=== PATIENT | female | born 1980 | race Caucasian/White ===

== ENCOUNTER 2016-05-03 08:38 | Outpatient (CLI) ==
[2014-06-14 10:59] VITALS: BMI 37.4
[2016-05-03 09:13] LABS: CHOL/HDL RATIO 4.1 (4.5-5.5)
[2016-05-03 09:14] LABS: SERUM PREGNANCY INTERNAL QC INTERNAL QC VALID
== END 2016-05-03 08:39 | disposition home or self-care (01) ==
LOC: LAB 08:38
PROVIDERS: ATTEND Advanced Practice Midwife
DX: Z00.00 Encounter for general adult medical examination without abnormal findings (principal); N91.2 Amenorrhea, unspecified
CPT/HCPCS: 36415; 80061; 84703

== ENCOUNTER 2016-05-04 15:55 | Outpatient (CLI) ==
[2014-06-14 10:59] VITALS: BMI 37.4
== END 2016-05-04 15:56 | disposition home or self-care (01) ==
LOC: CAR 15:55
PROVIDERS: ATTEND Physician Assistant
DX: R06.83 Snoring (principal); Z00.00 Encounter for general adult medical examination without abnormal findings
CPT/HCPCS: 95810

== ENCOUNTER 2016-06-02 15:34 | Outpatient (CLI) ==
[2014-06-14 10:59] VITALS: BMI 37.4
== END 2016-06-02 15:35 | disposition home or self-care (01) ==
LOC: CAR 15:34
PROVIDERS: ATTEND Physician Assistant
DX: G47.33 Obstructive sleep apnea (adult) (pediatric) (principal)
CPT/HCPCS: 95811

== ENCOUNTER 2016-07-26 13:06 | Emergency (ER) ==
[2016-07-26 13:10] VITALS: BP 138/86; TEMP 97.7; BMI 39.1
[2016-07-26 13:40] LABS: BASOPHILS % (AUTO) 0.5 % (0.0-3.0); EOSINOPHILS # (AUTO) 0.2 K/ul (0.0-0.7); HEMATOCRIT 36.1 % (37.0-47.0); HEMOGLOBIN 12.5 g/dl (12.0-16.0); IMMATURE GRANULOCYTE % (AUTO) 0.1 % (0.0-5.0); LYMPHOCYTES # (AUTO) 2.5 K/uL (0.60-3.4); LYMPHOCYTES % (AUTO) 32.4 (10.0-50.0); MEAN CORPUSCULAR HEMOGLOBIN 29.6 pg (27.0-31.0); MEAN CORPUSCULAR HGB CONC 34.6 (31.8-35.4); MEAN CORPUSCULAR VOLUME 85.5 fl (81.0-99.0); MONOCYTES # (AUTO) 0.5 K/uL (0.4-2.0); MONOCYTES % (AUTO) 6.1 (0-10); NEUTROPHILS # (AUTO) 4.6 K/ul (2.0-6.9); NEUTROPHILS % (AUTO) 58.9; PLATELET COUNT 219 10^3/uL (140-440); RED BLOOD COUNT 4.22 10^6/ul (4.20-5.40); WHITE BLOOD COUNT 7.82 K/ul (4.6-10.2)
[2016-07-26 13:45] LABS: URINE PREGNANCY INTERNAL QC INTERNAL QC VALID
[2016-07-26 14:01] LABS: ALANINE AMINOTRANSFERASE 24 U/L (12-78); ALBUMIN 3.9 g/dL (3.4-5.0); ALBUMIN/GLOBULIN RATIO 1.34; ALKALINE PHOSPHATASE 73 U/L (42-98); ANION GAP 10.6; ASPARTATE AMINO TRANSFERASE 14 U/L (15-37); BILIRUBIN,TOTAL 0.46 mg/dL (0.00-1.20); BLOOD UREA NITROGEN 10 mg/dL (7-18); BUN/CREATININE RATIO 12.34; CALCIUM 9.2 mg/dL (8.2-10.2); CARBON DIOXIDE 26 mmol/L (21-32); CHLORIDE 106 mmol/L (98-107); CREATINE KINASE 91 U/L; CREATININE 0.81 mg/dL (0.60-1.30); GLUCOSE 96 mg/dL (70-110); POTASSIUM 3.6 mmol/L (3.5-5.10); SODIUM 139 mmol/L (136-145); TOTAL PROTEIN 6.8 g/dL (6.4-8.2)
--- NOTE | 2016-07-26 14:29 | DI ---
EXAM: Chest two views HISTORY: Pain COMPARISON: None TECHNIQUE: Two views of the chest were performed FINDINGS: The lungs are clear. There is no pleural effusion or pneumothorax. The heart is normal in size. The mediastinal contour is normal. There are no acute abnormalities of the bones. IMPRESSION: No acute cardiopulmonary process.
--- NOTE | 2016-07-26 14:39 | CT ---
EXAM: CT head without contrast HISTORY: Woke up with headache and dizziness COMPARISON: CT head 06/14/2014 TECHNIQUE: Serial axial images of the brain were obtained from the skull base to the vertex without IV contrast. FINDINGS: The ventricles, cisterns and sulci are normal. The damon-white matter junction is maintai ara. No midline shift or mass is identified. There is no abnormal intra or extra-axial fluid colle ction. The paranasal sinuses and mastoid air cells are clear. The osseous calvarium is intact. IMPRESSION: No acute intracranial abnormality or hemorrhage. If further evaluation is clinically i ndicated, MRI may be obtained as clinically indicated.
--- NOTE | 2016-07-26 15:21 | ED.PDOC ---
General ED Provider: Dr. LILO DENNY Chief Complaint: Chest Pain Stated Complaint: chest pain Time Seen by Physician: 13:10 Mode of Arrival: Walk-In Information Source: Patient Exam Limitations: No limitations Primary Care Provider: MARIS RUEDA Nursing and Triage Documentation Reviewed and Agree: Yes Cardiovascular Complaint Exam - Chest Pain Complaint/Exam Onset: Gradual Duration: 1 day Symptoms Are: Still present Initial Severity: Moderate Current Severity: Moderate Location: Reports: Midsternal Pain Radiates: Reports: None Character: Reports: Dull Aggravating: Reports: None Alleviating: Reports: None Associated Signs and Symptoms: Denies: Diaphoresis, Nausea, Vomiting, Fever, Palpitations, Cough, Hemoptysis, Back pain, Abdominal pain, Dizziness, Short of air, Calf pain, Calf swelling History of Healthcare-Acquired Pneumonia: Reports: No AMI/ACS Risk Factors: Reports: None TAD Risk Factors: Reports: None Pulmonary Embolism Risk Factors: Reports: None Prior Care for this Complaint: No Recent Stress Test: No Recent Echo/LV Function: No JVD Present: No Subcutaneous Emphysema Present: No Diminshed Breath Sounds: No Reproducible Chest Wall Pain: No Bilateral Pulses Present: No Unequal Pulses Noted: No If Risk Factors for AMI/ACS Consider: EKG, Cardiac Enzymes Review of Systems - Review Of Systems Constitutional: Reports: No symptoms Eyes: Reports: No symptoms Ears, Nose, Mouth, Throat: Reports: No symptoms Respiratory: Reports: No symptoms Cardiac: Reports: Chest pain GI: Reports: No symptoms : Reports: No symptoms Musculoskeletal: Reports: No symptoms Skin: Reports: No symptoms Neurological: Reports: No symptoms Endocrine: Reports: No symptoms Hematologic/Lymphatic: Reports: No symptoms All Other Systems: Reviewed and Negative Past Medical History - Past Medical History Previously Healthy: Yes Endocrine: Reports: None Cardiovascular: Reports: None Respiratory: Reports: None Hematological: Reports: None Gastrointestinal: Reports: None Genitourinary: Reports: None Neuro/Psych: Reports: None Musculoskeletal: Reports: None Cancer: Reports: None Last Menstrual Period: depo shots no period for 1 year - Surgical History General Surgical History: Reports: Unknown - Family History Family History: Reports: Unknown - Social History Smoking Status: Never smoker Hx Substance Use: No Alcohol Screening: None Physical Exam - Physical Exam Appearance: Well-appearing, No pain distress, Well-nourished Eyes: LAURYN, EOMI, Conjunctiva clear ENT: Ears normal, Nose normal, Oropharynx normal Respiratory: Airway patent, Breath sounds clear, Breath sounds equal, Respirations nonlabored Cardiovascular: RRR, Pulses normal, No rub, No murmur GI/: Soft, Nontender, No masses, Bowel sounds normal, No Organomegaly Musculoskeletal: Normal strength, ROM intact, No edema, No calf tenderness Skin: Warm, Dry, Normal color Neurological: Sensation intact, Motor intact, Reflexes intact, Cranial nerves intact, Alert, Oriented Psychiatric: Affect appropriate, Mood appropriate Interpretation - Public Health Representative Rate: Normal Rhythm: Sinus Ectopy: None - EKG Interpretation Rate: Normal Rhythm: Sinus Ectopy: None Fielding: NL ST Segment: Normal Critical Care Note - Critical Care Note Total Time (mins): 0 Course - Course Hematology/Chemistry: 07/26/16 13:30 07/26/16 13:30 Orders, Labs, Meds: Lab Review 07/26/16 07/26/16 13:30 13:35 WBC 7.82 RBC 4.22 Hgb 12.5 Hct 36.1 L MCV 85.5 MCH 29.6 MCHC 34.6 RDW Coeff of Sarah 12.4 Plt Count 219 Immature Gran % (Auto) 0.1 Neut % (Auto) 58.9 Lymph % (Auto) 32.4 [place] % (Auto) 6.1 Eos % (Auto) 2.0 Baso % (Auto) 0.5 Immature Gran # (Auto) 0.0 Neut # 4.6 Lymph # 2.5 [place] # 0.5 Eos # 0.2 Baso # 0.0 Sodium 139 Potassium 3.6 Chloride 106 Carbon Dioxide 26 Anion Gap 10.6 BUN 10 Creatinine 0.81 Estimated GFR (MDRD) 80.00 BUN/Creatinine Ratio 12.34 Glucose 96 Calcium 9.2 Total Bilirubin 0.46 AST 14 L ALT 24 Alkaline Phosphatase 73 Total Creatine Kinase 91 Troponin I < 0.0100 Total Protein 6.8 Albumin 3.9 Globulin 2.9 Albumin/Globulin Ratio 1.34 Urine Test Negative Orders Category Date Time Status EKG-(ED ONLY) Stat CARDIO 07/26/16 13:29 Completed CBC W/ AUTO DIFF Stat LAB 07/26/16 13:30 Completed COMPREHENSIVE METABOLIC PANEL Stat LAB 07/26/16 13:30 Completed CREATINE KINASE Stat LAB 07/26/16 13:30 Completed TROPONIN I Stat LAB 07/26/16 13:30 Completed URINE Stat LAB 07/26/16 13:35 Completed CHEST, 2 VIEWS PA & LAT Stat RADS 07/26/16 13:[address] HEAD W/O CONTRAST Stat RADS 07/26/16 13:29 Completed Vital Signs: Temp Pulse Resp BP Pulse Ox 07/26/16 13:07 97.7 F 84 20 138/86 98 BELEN Risk Score BELEN Risk Score: Risk Score Odds of by 30D 0 0.1 (0.1-0.2) 1 0.3 (0.2-0.3) 2 0.4 (0.3-0.5) 3 0.7 (0.6-0.9) 4 1.2 (1.0-1.5) 5 2.2 (1.9-2.6) 6 3.0 (2.5-3.6) 7 4.8 (3.8-6.1) Departure - Departure Time of Disposition: 15:21 Disposition: HOME SELF-CARE Discharge Problem: Chest pain Instructions: Angina (ED), Chest Pain (ED), Noncardiac Chest Pain (ED) Condition: Good Pt referred to PMD for follow-up: No Additional Instructions: Please call your Family Physician as soon as possible to schedule a follow-up appointment. Allergies/Adverse Reactions: Allergies onions Adverse Reaction (Mild, Uncoded 07/26/16 13:10) sore mouth Home Medications: Ambulatory Orders Medroxyprogesterone Acetate [Depo-Provera] 150 mg IM DIRECTED 04/28/15
[2016-07-26] MEDS ORDERED: ELIQUIS PO SCH (16:00)
[2016-07-26] MEDS ORDERED: SODIUM CHLORIDE 1,000 ML IV SCH (16:00)
== END 2016-07-26 15:30 | disposition home or self-care (01) ==
LOC: ED 13:06
DX: R07.9 Chest pain, unspecified (principal)
CPT/HCPCS: 36415; 80053; 81025; 82550; 84484; 85025; 93005; 93010; 99283

== ENCOUNTER 2016-09-27 20:21 | Emergency (ER) ==
[2016-09-27 20:27] VITALS: BP 137/84; TEMP 99.2; BMI 39.9
[2016-09-27] MEDS ORDERED: NORCO 7.5-325 PO STA (21:05)
--- NOTE | 2016-09-27 21:09 | ED.PDOC ---
General ED Provider: Dr. TARA SCHAEFER-ER Chief Complaint: Fall Stated Complaint: i fell at home--i hufrt my left ankle. left wrist and right knee--no loc or head or neck injury Time Seen by Physician: 21:07 Mode of Arrival: Walk-In Information Source: Patient Exam Limitations: No limitations Primary Care Provider: MARIS RUEDA Nursing and Triage Documentation Reviewed and Agree: Yes Musculoskeletal Complaint Exam - Lower Extremity Complaint/Exam Location of Pain: Reports: Left, Ankle Mechanism of Injury: Reports: Trauma Onset/Duration: one hour Symptoms Are: Still present Onset of Pain: Reports: Immediate Initial Severity: Mild Current Severity: Mild Location: Reports: Discrete Character: Reports: Dull, Aching Aggravating: Reports: Movement, Weight bearing, Prolonged standing Able to Bear Weight: Yes Associated Signs and Symptoms: Reports: Swelling. Denies: Redness, Bruising, Fever, Weakness, Numbness, Tingling DVT Risk Factors: Reports: None Septic Arthritis Risk Factors: Reports: None Related Surgical History: Reports: None Lower Extremity Findings: Present: Swelling, Ecchymosis, Abnormal contour, Tenderness, Limited range of motion NV Bundle Intact Distal to Injury: Yes Compartment Syndrome Risk Factors: Present: Pain. Absent: Paralysis, Pallor, Pulselessness, Paresthesias Suki's Sign Present: No Differential Diagnoses: Fracture, Strain, Sprain Review of Systems - Review Of Systems Constitutional: Reports: No symptoms Eyes: Reports: No symptoms Ears, Nose, Mouth, Throat: Reports: No symptoms Respiratory: Reports: No symptoms Cardiac: Reports: No symptoms GI: Reports: No symptoms : Reports: No symptoms Musculoskeletal: Reports: Joint pain, Joint swelling, Muscle pain Skin: Reports: No symptoms Neurological: Reports: No symptoms Endocrine: Reports: No symptoms Hematologic/Lymphatic: Reports: No symptoms All Other Systems: Reviewed and Negative Past Medical History - Past Medical History Previously Healthy: Yes Endocrine: Reports: None Cardiovascular: Reports: None Respiratory: Reports: None Hematological: Reports: None Gastrointestinal: Reports: None Genitourinary: Reports: None Neuro/Psych: Reports: None Musculoskeletal: Reports: None Cancer: Reports: None Last Menstrual Period: DEPO PROVERA - Surgical History General Surgical History: Reports: Unknown - Family History Family History: Reports: Unknown - Social History Smoking Status: Never smoker Hx Substance Use: No Alcohol Screening: None Lives: With family - Immunizations Tetanus Shot up to Date: No Physical Exam - Physical Exam Appearance: Well-appearing, No pain distress, Well-nourished Pain Distress: Mild Eyes: LAURYN, EOMI, Conjunctiva clear ENT: Ears normal, Nose normal, Oropharynx normal Neck: Supple Respiratory: Airway patent, Breath sounds clear, Breath sounds equal, Respirations nonlabored Cardiovascular: RRR, Pulses normal, No rub, No murmur GI/: Soft, Nontender, No masses, Bowel sounds normal, No Organomegaly Musculoskeletal: Limited ROM Skin: Warm, Dry, Normal color Neurological: Sensation intact, Motor intact, Reflexes intact, Cranial nerves intact, Alert, Oriented Psychiatric: Affect appropriate, Mood appropriate Interpretation - Radiology Interpretation Radiology Interpretation By: ED Physician Radiology Results: Negative Critical Care Note - Critical Care Note Total Time (mins): 0 Course - Course Orders, Labs, Meds: Orders Category Date Time Status CRUTCHES [ED CRUTCHES] .ONCE EMERGENCY 09/27/16 21:05 Active ED SUMMER WRAP .ONCE EMERGENCY 09/27/16 21:05 Active ED SPLINT APPLICATION .ONCE EMERGENCY 09/27/16 21:05 Active Wound care [ED WOUND CARE] .ONCE EMERGENCY 09/27/16 21:06 Active Hydrocodone Bit/Acetaminophen [[place] 7.5-325] MEDS 09/27/16 21:05 Stat 1 tab PO ONCE STA ANKLE, LEFT MIN 3 VIEWS Stat RADS 09/27/16 20:31 Taken KNEE, RIGHT 4 VIEWS Stat RADS 09/27/16 20:31 Taken WRIST, LEFT 3 VIEWS Stat RADS 09/27/16 20:31 Taken Vital Signs: Temp Pulse Resp BP Pulse Ox 09/27/16 20:21 99.2 F 93 H 18 137/84 98 Departure - Departure Time of Disposition: 21:08 Disposition: HOME SELF-CARE Discharge Problem: Ankle sprain Qualifiers: Encounter type: initial encounter Involved ligament of ankle: other ligament Laterality: left Qualifier Code: (S93.492A) Sprain of other ligament of left ankle, initial encounter Instructions: Ankle Sprain (ED), Ankle Stirrup Splint (ED) Condition: Good Pt referred to PMD for follow-up: Yes Additional Instructions: stay in splint--norco 5mg q 4hrs prn pain #15--ice tonight--use crutches--f/u with pcp this week+ Allergies/Adverse Reactions: Allergies onions Adverse Reaction (Mild, Uncoded 09/27/16 20:27) sore mouth Home Medications: Ambulatory Orders Medroxyprogesterone Acetate [Depo-Provera] 150 mg IM DIRECTED 04/28/15 Escitalopram Oxalate [Lexapro] 10 mg PO DAILY 09/27/16 Disposition Discussed With: Patient
--- NOTE | 2016-09-27 21:43 | DI ---
EXAM: Radiographs, left wrist HISTORY: Initial presentation for left wrist trauma. COMPARISON: None available. TECHNIQUE: Three views. FINDINGS: Bone mineralization is normal. There is no fracture or dislocation. The joint spaces ar e maintained. No focal soft tissue abnormality is seen. IMPRESSION: No fracture or dislocation.
--- NOTE | 2016-09-27 21:44 | DI ---
EXAM: Radiographs, left ankle HISTORY: Initial presentation for left ankle trauma. COMPARISON: None available. TECHNIQUE: Three views. FINDINGS: Bone mineralization is normal. There is no fracture or dislocation. The joint spaces ar e maintained. No focal soft tissue abnormality is seen. IMPRESSION: No fracture or dislocation.
--- NOTE | 2016-09-27 21:45 | DI ---
EXAM: Radiographs, right knee HISTORY: Initial presentation for right knee trauma. COMPARISON: None available. TECHNIQUE: Four views. FINDINGS: Bone mineralization is normal. There is no fracture or dislocation. The joint spaces ar e maintained. No focal soft tissue abnormality is seen. IMPRESSION: No fracture or dislocation.
== END 2016-09-27 21:15 | disposition home or self-care (01) ==
LOC: ED 20:21
DX: S93.492A Sprain of other ligament of left ankle, initial encounter (principal); S69.92XA Unspecified injury of left wrist, hand and finger(s), initial encounter; S89.91XA Unspecified injury of right lower leg, initial encounter; W19.XXXA Unspecified fall, initial encounter
CPT/HCPCS: 99283

== ENCOUNTER 2017-01-05 07:52 | Outpatient (CLI) ==
[2017-01-05 08:23] LABS: CREATININE 0.79 mg/dL (0.60-1.30)
--- NOTE | 2017-01-05 09:07 | CT ---
EXAM: CT Sinuses with and without contrast. HISTORY: Sinus pressure. COMPARISON: None available. TECHNIQUE: Multiple axial images of the sinuses were obtained prior to and following intravenous adm inistration of 75 mL of Omnipaque 350. Images were reformatted in the sagittal and coronal plane. FINDINGS: Maxillary sinuses: Clear. Ostiomeatal units are patent. Ethmoid sinuses: Clear. Sphenoid sinuses: Clear. Frontal sinuses: Clear. Nasal cavity: Unremarkable. Mastoid air cells are clear. No fracture identified. No localized soft tissue abnormality identifie d. Globes and intraorbital structures are intact. No acute abnormality within the visualized brain. Possible left frontal developmental venous anomaly on axial images 42-44. IMPRESSION: No evidence for sinusitis.
== END 2017-01-05 07:53 | disposition home or self-care (01) ==
LOC: RAD 07:52
PROVIDERS: ATTEND Physician Assistant
DX: J32.9 Chronic sinusitis, unspecified (principal)
CPT/HCPCS: 36415; 82565

== ENCOUNTER 2017-06-20 12:14 | Outpatient (CLI) ==
--- NOTE | 2017-06-20 13:33 | DI ---
EXAM: Radiographs, right wrist HISTORY: Right wrist ganglion cyst. COMPARISON: None available. TECHNIQUE: Three views. FINDINGS: Bone mineralization is normal. There is no fracture or dislocation. The joint spaces are maintained. Focal ovoid opacity in the superficial soft tissues of the dorsal right wrist noted in the area of concern. IMPRESSION: Ovoid soft tissue nodule in the area of concern of the dorsal wrist could represent a ganglion cyst. Consider ultrasound or MRI if further evaluation is needed.
== END 2017-06-20 12:15 | disposition home or self-care (01) ==
LOC: RAD 12:14
PROVIDERS: ATTEND Physician Assistant
DX: M67.431 Ganglion, right wrist (principal)

== ENCOUNTER 2017-10-07 12:17 | Outpatient (CLI) | END 2017-10-07 12:18 | disposition home or self-care (01) | LOC: LAB 12:17 | PROVIDERS: ATTEND Physician Assistant | DX: Z02.0 Encounter for examination for admission to educational institution (principal) | CPT/HCPCS: 36415; 86317; 86787 ==

== ENCOUNTER 2018-07-11 08:03 | Emergency (ER) ==
[2018-07-11 08:18] VITALS: BP 135/92; TEMP 97.7; BMI 42.9
--- NOTE | 2018-07-11 08:30 | ED.PDOC ---
General ED Provider: Dr. TARA VICKERS MD Chief Complaint: Neck Pain Non-Injury Stated Complaint: upper back pain x 4 months, worse over past 4 days Time Seen by Physician: 08:16 Mode of Arrival: Walk-In Information Source: Patient Exam Limitations: No limitations Primary Care Provider: FRANCISCO JAVIER CROSS Nursing and Triage Documentation Reviewed and Agree: Yes Does patient meet sepsis criteria?: No If yes, has appropriate treatment been initiated?: Yes System Inflammatory Response Syndrome: Not Applicable Sepsis Protocol: For patient's 13 years and over: Temp is 96.8 and below OR 101 and greater Pulse >90 BPM Resp >20/minute Acutely Altered Mental Status Are patient's symptoms suggestive of a new infection, such as: -Pneumonia -Skin, Soft Tissue -Endocarditis -UTI -Bone, Joint Infection -Implantable Device -Acute Abdominal Infection -Wound Infection -Meningitis -Blood Stream Catheter Infection -Unknown Review of Systems - Review Of Systems Constitutional: Reports: No symptoms Eyes: Reports: No symptoms Ears, Nose, Mouth, Throat: Reports: No symptoms Respiratory: Reports: No symptoms Cardiac: Reports: No symptoms GI: Reports: No symptoms : Reports: No symptoms Musculoskeletal: Reports: No symptoms Skin: Reports: No symptoms Neurological: Reports: No symptoms Endocrine: Reports: No symptoms Hematologic/Lymphatic: Reports: No symptoms All Other Systems: Reviewed and Negative Past Medical History - Past Medical History Previously Healthy: Yes Endocrine: Reports: None Cardiovascular: Reports: None Respiratory: Reports: None Hematological: Reports: None Gastrointestinal: Reports: None Genitourinary: Reports: None Neuro/Psych: Reports: None Musculoskeletal: Reports: None Cancer: Reports: None Last Menstrual Period: 4 YEARS - Surgical History General Surgical History: Reports: Unknown - Family History Family History: Reports: Unknown - Social History Smoking Status: Never smoker Hx Substance Use: No Alcohol Screening: None Physical Exam - Physical Exam Appearance: Well-appearing, Obese Ill-appearing: None Pain Distress: Mild Eyes: LAURYN, EOMI, Conjunctiva clear ENT: Ears normal, Nose normal, Oropharynx normal Neck: Supple Respiratory: Airway patent, Breath sounds clear, Breath sounds equal, Respirations nonlabored Cardiovascular: RRR, Pulses normal, No rub, No murmur GI/: Soft, Nontender, No masses, Bowel sounds normal, No Organomegaly Musculoskeletal: Normal strength (TTP in T4-6 area midline to right) Critical Care Note - Critical Care Note Total Time (mins): 0 Course - Course Orders, Labs, Meds: Orders Category Date Time Status Ketorolac Tromethamine [Toradol] MEDS 07/11/18 09:35 Discontinued 60 mg IM ONCE STA THORACIC SPINE, 3 VIEWS Stat RADS 07/11/18 08:29 Completed Medications Discontinued Medications Generic Name Dose Route Start Last Admin Trade Name Prasanth PRN Reason Stop Dose Admin Ketorolac Tromethamine 60 mg 07/11/18 09:35 07/11/18 09:54 Toradol IM 07/11/18 09:36 60 mg ONCE STA Administration Vital Signs: Temp Pulse Resp BP Pulse Ox 07/11/18 08:05 97.7 F 87 20 135/92 H 98 Departure - Departure Time of Disposition: 10:38 Disposition: HOME SELF-CARE Discharge Problem: Thoracic back pain Qualifiers: Chronicity: chronic Back pain laterality: midline Qualified Code(s): M54.6 - Pain in thoracic spine; G89.29 - Other chronic pain Instructions: Back Pain (ED) Condition: Good Pt referred to PMD for follow-up: Yes IPMP verified?: No Prescriptions: Cyclobenzaprine HCl [Flexeril] 10 mg PO DAILY 10 Days #10 tablet NS Prednisone 20 mg PO DAILYWM 5 Days #5 tablet NS Allergies/Adverse Reactions: Allergies onions Adverse Reaction (Mild, Uncoded 07/11/18 08:15) sore mouth Home Medications: Ambulatory Orders Medroxyprogesterone Acetate [Depo-Provera] 150 mg IM DIRECTED 04/28/15 Cyclobenzaprine HCl [Flexeril] 10 mg PO DAILY 10 Days #10 tablet NS 07/11/18 Prednisone 20 mg PO DAILYWM 5 Days #5 tablet NS 07/11/18
--- NOTE | 2018-07-11 09:33 | DI ---
Exam: Three views thoracic spine. Comparison: CT abdomen pelvis performed 12/31/2013. Reason for exam: Upper thoracic pain x 4 months FINDINGS: Image interpretation is limited by summation artifact in the superior portion of the thora cic spine. Otherwise no acute fracture or listhesis is seen. There is a normal appearing thoracic k yphotic curve with mild degenerative disease. Impression: No obvious fracture or listhesis in the imaged portions of the thoracic spine. 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 The superiormost portion of the thoracic spine is poorly evaluated secondary to summation.
[2018-07-11] MEDS ORDERED: TORADOL IM STA (09:35)
== END 2018-07-11 10:39 | disposition home or self-care (01) ==
LOC: ED 08:03
DX: M54.2 Cervicalgia (principal); M54.6 Pain in thoracic spine; G89.29 Other chronic pain
CPT/HCPCS: 96372; 99282

== ENCOUNTER 2018-08-23 18:25 | Emergency (ER) ==
[2018-08-23 18:25] VITALS: BMI 42.9
[2018-08-23 18:31] VITALS: BP 145/92; TEMP 98.2
[2018-08-23] MEDS ORDERED: ZOFRAN 4 MG/2 ML IM STA (18:44)
[2018-08-23] MEDS ORDERED: TORADOL IM STA (18:44)
[2018-08-23] MEDS ORDERED: MORPHINE 4 MG/ML SYRINGE IM STA (18:44)
--- NOTE | 2018-08-23 18:47 | ED.PDOC ---
General ED Provider: Dr. LILO DENNY Chief Complaint: Back Pain Stated Complaint: back pain lumbar Time Seen by Physician: 18:44 (vida present at all times ) Mode of Arrival: Walk-In Information Source: Patient Exam Limitations: No limitations Primary Care Provider: FRANCISCO JAVIER CROSS Nursing and Triage Documentation Reviewed and Agree: Yes Does patient meet sepsis criteria?: No If yes, has appropriate treatment been initiated?: No System Inflammatory Response Syndrome: Not Applicable Sepsis Protocol: For patient's 13 years and over: Temp is 96.8 and below OR 101 and greater Pulse >90 BPM Resp >20/minute Acutely Altered Mental Status Are patient's symptoms suggestive of a new infection, such as: -Pneumonia -Skin, Soft Tissue -Endocarditis -UTI -Bone, Joint Infection -Implantable Device -Acute Abdominal Infection -Wound Infection -Meningitis -Blood Stream Catheter Infection -Unknown Review of Systems - Review Of Systems Constitutional: Reports: No symptoms Eyes: Reports: No symptoms Ears, Nose, Mouth, Throat: Reports: No symptoms Respiratory: Reports: No symptoms Cardiac: Reports: No symptoms GI: Reports: No symptoms : Reports: No symptoms Musculoskeletal: Reports: Back pain Skin: Reports: No symptoms Neurological: Reports: No symptoms Endocrine: Reports: No symptoms Hematologic/Lymphatic: Reports: No symptoms All Other Systems: Reviewed and Negative Past Medical History - Past Medical History Previously Healthy: Yes Endocrine: Reports: None Cardiovascular: Reports: None Respiratory: Reports: None Hematological: Reports: None Gastrointestinal: Reports: None Genitourinary: Reports: None Neuro/Psych: Reports: None Musculoskeletal: Reports: None Cancer: Reports: None Last Menstrual Period: 3 yrs ago--depo - Surgical History General Surgical History: Reports: Unknown - Family History Family History: Reports: Unknown - Social History Smoking Status: Never smoker Hx Substance Use: No Alcohol Screening: None Physical Exam - Physical Exam Appearance: Well-appearing, No pain distress, Well-nourished Eyes: LAURYN, EOMI, Conjunctiva clear ENT: Ears normal, Nose normal, Oropharynx normal Respiratory: Airway patent, Breath sounds clear, Breath sounds equal, Respirations nonlabored Cardiovascular: RRR, Pulses normal, No rub, No murmur GI/: Soft, Nontender, No masses, Bowel sounds normal, No Organomegaly Musculoskeletal: Normal strength, ROM intact, No edema, No calf tenderness Skin: Warm, Dry, Normal color Neurological: Sensation intact, Motor intact, Reflexes intact, Cranial nerves intact, Alert, Oriented Psychiatric: Affect appropriate, Mood appropriate Critical Care Note - Critical Care Note Total Time (mins): 0 Course - Course Orders, Labs, Meds: Orders Category Date Time Status Ketorolac Tromethamine [Toradol] MEDS 08/23/18 18:44 Discontinued 60 mg IM ONCE STA Morphine Sulfate [Morphine 4 mg/ml Syringe] MEDS 08/23/18 18:44 Discontinued 4 mg IM ONCE STA Ondansetron HCl/Pf [Zofran 4 mg/2 ml] MEDS 08/23/18 18:44 Discontinued 4 mg IM ONCE STA Medications Discontinued Medications Generic Name Dose Route Start Last Admin Trade Name Freq PRN Reason Stop Dose Admin Ketorolac Tromethamine 60 mg 08/23/18 18:44 08/23/18 19:01 Toradol IM 08/23/18 18:45 60 mg ONCE STA Administration Morphine Sulfate 4 mg 08/23/18 18:44 08/23/18 19:00 Morphine 4 Mg/Ml Syringe IM 08/23/18 18:45 4 mg ONCE STA Administration Ondansetron HCl 4 mg 08/23/18 18:44 08/23/18 19:01 Zofran 4 Mg/2 Ml IM 08/23/18 18:45 4 mg ONCE STA Administration Vital Signs: Temp Pulse Resp BP Pulse Ox 08/23/18 18:25 98.2 F 100 H 20 145/92 H 97 Departure - Departure Time of Disposition: 19:00 Disposition: HOME SELF-CARE Discharge Problem: Lumbar back pain Instructions: Low Back Strain (ED), Acute Low Back Pain (ED), Back Pain (ED) Condition: Good Pt referred to PMD for follow-up: Yes IPMP verified?: No Additional Instructions: Please call your Family Physician as soon as possible to schedule a follow-up appointment.since you dis not have an injury xray will no be usefull in this case discuss MRI WITH YOUR MD Prescriptions: Hydrocodone Bit/Acetaminophen [[place] 10-325] 1 each PO Q4HR 4 Days #12 tablet Allergies/Adverse Reactions: Allergies onions Adverse Reaction (Mild, Uncoded 08/23/18 18:32) sore mouth Home Medications: Ambulatory Orders Medroxyprogesterone Acetate [Depo-Provera] 150 mg IM DIRECTED 01/04/16 Cyclobenzaprine HCl [Flexeril] 10 mg PO DAILY 10 Days #10 tablet NS 07/11/18 Hydrocodone Bit/Acetaminophen [[place] 10-325] 1 each PO Q4HR 4 Days #12 tablet
== END 2018-08-23 19:26 | disposition home or self-care (01) ==
LOC: ED 18:25
DX: M54.5 Low back pain (principal)
CPT/HCPCS: 96372; 99282

== ENCOUNTER 2018-09-14 11:37 | Outpatient (CLI) ==
--- NOTE | 2018-09-14 13:33 | MRI ---
Examination: MRI of the lumbar spine without contrast 09/14/2018 Clinical information: Low back pain, lumbar radiculopathy. Comparison: None. TECHNIQUE: Sagittal and axial T1 and T2W imaging, sagittal STIR and coronal T2W sequences were perfo rmed. FINDINGS: The conus medullaris is normal in signal, location and morphology terminating at the L1 ve rtebral body level. There is a 3 mm retrolisthesis of L5 on S1. The lumbar vertebral bodies are oth erwise normal in height, AP alignment and intrinsic marrow signal intensity. There is moderate loss of disc height L5-S1 with disc desiccation. There is no lumbar vertebral body compression fracture o r abnormal marrow edema. There are small chronic lower thoracic Schmorl's nodes. Small chronic L1-L 2 Schmorl's nodes. At the L2-L3 level, there is mild bilateral facet hypertrophy. At the L3-L4 level, there is modest left and mild right hypertrophic facet arthropathy. At the L4-L5 level, there is a minimal disc bulge eccentric left. There is modest bilateral hypertro phic facet arthropathy. No significant central spinal canal stenosis or foraminal stenosis. At the L5-S1 level, there is a diffuse disc bulge. There is a modest sized central disc protrusion w hich slightly indents the thecal sac and contacts both medial S1 nerve roots. There is no significan t central spinal canal stenosis. There is modest bilateral facet hypertrophy. There is mild bilater al foraminal stenosis. Impression: 1. L5-S1 central disc protrusion. No significant central spinal canal stenosis. 2. Mild bilateral L5-S1 foraminal stenosis. 3. Multilevel facet hypertrophy. 4. A 3 mm retrolisthesis of L5 on S1.
== END 2018-09-14 11:38 | disposition home or self-care (01) ==
LOC: RAD 11:37
PROVIDERS: ATTEND Nurse Practitioner Family
DX: M54.16 Radiculopathy, lumbar region (principal)